=== PATIENT | male | born 1990 | race African-American/Black ===

== ENCOUNTER 2019-07-19 16:12 | Emergency (ER) | payer SELFPAY ==
[2019-07-19] MEDS ORDERED: NA CHLORIDE 0.9% 1,000 ML ONE ×2 (16:32→18:50)
[2019-07-19 16:51] LABS: Absolute Lymphocytes (CBC) 1.7 K/uL (0.7-4.9); Basophils % 0.3 % (0-1.3); Hematocrit 42.1 % (39.6-49.0); Lymphocytes % 16.2 % (15.3-44.8); MPV 9.2 fL (7.6-11.3); RBC Red Blood Cell Count 5.24 M/uL (4.33-5.43)
[2019-07-19 16:58] LABS: Protime INR 1.09
[2019-07-19 17:37] LABS: ALT/SGPT 46 U/L (12-78); AST/SGOT 59 U/L (15-37); Alkaline Phosphatase 76 U/L (45-117); BUN Blood Urea Nitrogen 16 mg/dL (7-18); Bicarbonate 28 mmol/L (21-32); Bilirubin Direct 0.2 mg/dL (0-0.2); Bilirubin Total 0.8 mg/dL (0.2-1.0); Glucose Level 81 mg/dL (74-106); Potassium 3.3 mmol/L (3.5-5.1); Protein, Total 8.3 g/dL (6.4-8.2); Sodium Level 140 mmol/L (136-145)
[2019-07-19] MEDS ORDERED: POTASSIUM 25 MEQ EFFERV TAB ONE (18:50)
[2019-07-19 19:15] VITALS: TEMP 99.1
[2019-07-19 19:17] VITALS: BP 113/73; O2SAT 98
[2019-07-19 20:23] LABS: Barbiturates NEGATIVE (NEGATIVE); Benzodiazepines NEGATIVE (NEGATIVE); Cocaine NEGATIVE (NEGATIVE); METHAMPHETAM NEGATIVE (NEGATIVE); Methadone NEGATIVE (NEGATIVE); Opiates NEGATIVE (NEGATIVE); Phencyclidine NEGATIVE (NEGATIVE); THC Cannibis POSITIVE (NEGATIVE)
[2019-07-19 21:56] LABS: Urine Blood NEGATIVE (NEG); Urine Glucose NEGATIVE (NEG); Urine Protein 1+ (NEG); Urine pH 5.5 (5.0-7.0)
--- NOTE | 2019-07-20 14:07 | EKG ---
Test Date: 2019-07-19 Test Time: 16:42:24 Postal Transportation Clerk: FLAVIA MEASUREMENT RESULTS: Intervals: Rate: 70 AK: 184 QRSD: 94 QT: 382 QTc: 412 Oneco: P: 31 AK: 184 QRS: 63 T: 44 INTERPRETIVE STATEMENTS: Sinus rhythm with premature atrial complexes Otherwise normal ECG No previous ECG available for comparison Electronically Signed On 07-20-19 14:06:14 CDT by Brown Fatima
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
== END 2019-07-19 19:02 | disposition home or self-care (01) ==
LOC: ER 16:12
DX: Z04.9 Encounter for examination and observation for unspecified reason (principal); F31.9 Bipolar disorder, unspecified
CPT/HCPCS: 36415; 80048; 80076; 80307; 80320; 80329; 81003; 85025; 85610; 85730; 93005; 96360; 99284; J7030

== ENCOUNTER 2019-11-04 11:43 | Emergency (ER) | payer SELFPAY ==
--- NOTE | 2019-11-04 12:37 | EDPHYS ---
Physician Documentation [facility] Name: Lianne David Age: 29 yrs Sex: Male : 1990 Arrival Date: 11/04/2019 Time: 11:51 Bed 8 Private MD: RAFFAELE Physician Fawad Shearer HPI: 11/03 11:55 This 29 yrs old Black Male presents to ER via Unassigned with complaints of Hand Injury.cp Historical: - Allergies: 11:58 No Known Allergies; tw2 - Home Meds: 11:58 None [Active]; tw2 - PMHx: 11:58 Bipolar disorder; tw2 - PSHx: 11:58 None; tw2 - Immunization history:: Adult Immunizations. - Social history:: Smoking status: . ROS: 12:00 MS/extremity: Positive for pain, tenderness, of the head of right middle metacarpal, cp Negative for deformity. 12:00 Constitutional: Negative for chills, fever. cp 12:00 Neck: Negative for pain with movement, pain at rest. 12:00 Back: Negative for pain at rest, pain with movement. 12:00 Skin: Negative for cellulitis, rash. 12:00 Neuro: Negative for headache, numbness, tingling. 12:00 All other systems are negative. Exam: 12:05 Constitutional: The patient appears in no acute distress, alert, awake, well developed, cp well nourished. 12:05 Musculoskeletal/extremity: Extremities: grossly normal except: noted in the head of cp right middle metacarpal: pain, tenderness, There is no evidence of deformity, decreased range of motion right middle metacarpal phalangeal joint, Perfusion: the extremity is normally perfused throughout, Sensation intact. Tendon exam: specific tendon testing normal through active and passive range of motion 12:05 Head/Face: Normocephalic, atraumatic. cp 12:05 Cardiovascular: Rate: normal. 12:05 Respiratory: the patient does not display signs of respiratory distress, Respirations: normal, no use of accessory muscles, labored breathing, is not present. Vital Signs: 11:52 BP 127 / 96; Pulse 60; Resp 16; Temp 97.8(TE); Pulse Ox 100% on R/A; Weight 65.77 kg tw2 (R); Height 5 ft. 8 in. (172.72 cm); Pain 8/10; 12:37 BP 138 / 88; Pulse 68; Resp 17; Pulse Ox 99% on R/A; tw2 11:52 Body Mass Index 22.05 (65.77 kg, 172.72 cm) tw2 MDM: 11:53 Patient medically screened. [facility] 12:33 Test interpretation: by ED physician or midlevel provider: xrays of right hand negative cp for fracture. 12:35 Data reviewed: vital signs, nurses notes, radiologic studies, plain films, and as a cp result, I will discharge patient. 12:35 Differential diagnosis: dislocation, closed fracture, contusion. Counseling: I had a cp detailed discussion with the patient and/or guardian regarding: the historical points, exam findings, and any diagnostic results supporting the discharge/admit diagnosis, radiology results, to return to the emergency department if symptoms worsen or persist or if there are any questions or concerns that arise at home. 11/03 11:52 Order name: XRAY Hand RIGHT 3 View: pain times 1 month cp Administered Medications: No medications were administered Disposition: 12:45 Chart complete. cp 11/04 11:12 Co-signature as Attending Physician, Fawad Shearer MD I agree with the assessment and [facility] plan of care. Disposition: 11/04/19 12:36 Discharged to Home. Impression: Pain in right hand. - Condition is Stable. - Discharge Instructions: Hand Pain. - Prescriptions for Ibuprofen 800 mg Oral Tablet - take 1 tablet by ORAL route every 8 hours As needed take with food; 30 tablet. - Medication Reconciliation Form, Thank You Letter, Antibiotic Education, Prescription Opioid Use form. - Follow up: Private Physician; When: 2 - 3 days; Reason: Worsening of condition. - Problem is new. - Symptoms are unchanged. Signatures: Dispatcher [employer] Fawad Fernando MD MD cha Page, Corey, PA PA cp Barber, Rebecca, RN RN Ping Martines RN RN tw2 Corrections: (The following items were deleted from the chart) 11/03 12:38 12:36 Splint - Finger ordered. cp cp 12:40 12:36 11/04/2019 12:36 Discharged to Home. Impression: Pain in right hand. Condition is rb1 Stable. Forms are Medication Reconciliation Form, Thank You Letter, Antibiotic Education, Prescription Opioid Use. Follow up: Private Physician; When: 2 - 3 days; Reason: Worsening of condition. Problem is new. Symptoms are unchanged. cp 11/04 06:38 06:36 MS/extremity: Positive for pain, tenderness, of the head of right middle cp metacarpal, Negative for deformity, cp
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
[2019-11-04 13:17] VITALS: TEMP 97.8
[2019-11-04 13:18] VITALS: BP 138/88; O2SAT 99
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
== END 2019-11-04 12:40 | disposition home or self-care (01) ==
LOC: ER 11:43
DX: M79.641 Pain in right hand (principal)
CPT/HCPCS: 99283

== ENCOUNTER 2022-07-02 13:00 | Emergency (ER) | payer SELFPAY ==
[2022-07-02] MEDS ORDERED: MIDAZOLAM HCL 2 MG/2 ML INJ ONE (13:10)
[2022-07-02 13:32] LABS: Absolute Lymphocytes (CBC) 2.1 K/uL (0.7-4.9); Hematocrit 43.6 % (39.6-49.0); Lymphocytes % 18.5 % (15.3-44.8); MCV 83.9 fL (80-100); MPV 8.4 fL (7.6-11.3)
[2022-07-02] MEDS ORDERED: NA CHLORIDE 0.9% 2,000 ML ONE (13:33)
[2022-07-02 13:37] LABS: Protime INR 0.99
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
[2022-07-02 13:54] LABS: ALT/SGPT 75 U/L (16-61); Albumin 3.9 g/dL (3.4-5.0); Alkaline Phosphatase 83 U/L (45-117); BUN Blood Urea Nitrogen 9 mg/dL (7-18); Bicarbonate 20 mEq/L (21-32); Bilirubin Direct 0.1 mg/dL (0-0.2); Bilirubin Indirect, Calculated 0.4 mg/dL (0.2-0.8); Bilirubin Total 0.5 mg/dL (0.2-1.0); Glomerular Filtration Rate 76 ml/min (=/>90); Glucose Level 95 mg/dL (74-106); Protein, Total 8.2 g/dL (6.4-8.2); Sodium Level 137 mEq/L (136-145)
[2022-07-02 13:55] LABS: AST/SGOT 74 U/L (15-37); Potassium 3.7 mEq/L (3.5-5.1)
--- NOTE | 2022-07-02 15:05 | EDPHYS ---
Physician Documentation [facility] Name: Kylah David Age: 31 yrs Sex: Male : 1990 Arrival Date: 07/02/2022 Time: 13:00 Bed 20 Private MD: ED Physician Gerber Lucia HPI: 07/02 13:15 This 31 yrs old Black Male presents to ER via EMS with complaints of Altered Mental cp Status, Drug Abuse. 13:15 The patient presents with confusion. Onset: The symptoms/episode began/occurred today. cp Possible causes: drug use. Current symptoms: In the emergency department the patient's symptoms are unchanged from the initial presentation, despite home interventions. 13:15 Patient is a 24-year-old male brought to the emergency department accompanied by law cp enforcement after reportedly being involved in a argument with another gentleman. Law enforcement arrived on the scene and observed that the patient was altered and so they were concerned that patient was on an of illegal substance. Patient is not cooperative and is combative during initial interview. 13:15 Unable to obtain HPI due to patient is being uncooperative. cp Historical: - PMHx: 13:47 Bipolar disorder; db - Immunization history:: unknown. - Social history:: Smoking status: unknown Patient uses alcohol, street drugs. ROS: 13:15 Constitutional: Negative for fever. cp 13:15 Neck: Negative for stiffness. cp 13:15 Cardiovascular: Negative for chest pain. 13:15 Abdomen/GI: Negative for abdominal pain. 13:15 Eyes: Negative for injury, pain, redness, and discharge. cp 13:15 ENT: Negative for drainage from ear(s), ear pain, sore throat, difficulty swallowing, cp difficulty handling secretions. 13:15 Respiratory: Negative for cough, shortness of breath, wheezing. 13:15 Neuro: Positive for altered mental status. 13:15 All other systems are negative. Exam: 13:22 Constitutional: The patient appears alert, awake, non-diaphoretic, non-toxic, well cp developed, well nourished. 13:22 Head/Face: Normocephalic, atraumatic. cp 13:22 Eyes: Periorbital structures: appear normal, Pupils: equal, round, and reactive to light and accomodation, Conjunctiva: normal, no exudate, no injection, Sclera: no appreciated abnormality, Lids and lashes: appear normal, bilaterally. 13:22 ENT: External ear(s): are unremarkable, Nose: is normal, Mouth: Lips: moist, Oral mucosa: pink and intact, moist, Posterior pharynx: is normal, airway is patent, no erythema, no exudate. 13:22 Neck: ROM/movement: is normal, is supple, without pain, no range of motions limitations. 13:22 Chest/axilla: Inspection: normal, Palpation: is normal, no crepitus, no tenderness. cp 13:22 Cardiovascular: Rate: tachycardic, Rhythm: regular. 13:22 Respiratory: the patient does not display signs of respiratory distress, Respirations: normal, no use of accessory muscles, no retractions, labored breathing, is not present, Breath sounds: are clear throughout, no decreased breath sounds, no stridor, no wheezing. 13:22 Abdomen/GI: Inspection: abdomen appears normal, Palpation: abdomen is soft and cp non-tender, in all quadrants. 13:22 Back: pain, is absent, ROM is normal. cp 13:22 Neuro: Orientation: unable to test, Mentation: confused, Motor: moves all fours, strength is normal. 13:22 Psych: Behavior/mood is uncooperative, Affect is animated, Patient has no thoughts/intents to harm self or others. Judgement / Insight is impaired. 13:27 ECG was reviewed by the Attending Physician. cp Vital Signs: 12:55 BP 144 / 123; Pulse 153; Resp 22; Pulse Ox 100% ; Weight 74.84 kg; db 13:12 BP 149 / 81; Pulse 100; Resp 18; Pulse Ox 96% on R/A; db 13:30 BP 125 / 77; Pulse 69; Resp 16; Pulse Ox 95% on R/A; db 14:00 BP 105 / 64; Pulse 81; Resp 16; Pulse Ox 96% on R/A; db 15:00 BP 107 / 64; Pulse 76; Resp 16; Pulse Ox 95% on R/A; db MDM: 13:15 Patient medically screened. cp 13:30 Differential Diagnosis: electrolyte abnormality, alcohol intoxication, hypoglycemia, cp intracranial bleed, meningitis, overdose, seizure, sepsis, volume depletion. 15:05 Data reviewed: vital signs, nurses notes, lab test result(s), EKG, radiologic studies. cp 15:05 Consideration of Admission/Observation Escalation of care including cp admission/observation considered. I considered the following discharge prescriptions or medication management in the emergency department Medications were administered in the Emergency Department. See MAR. Counseling: I had a detailed discussion with the patient and/or guardian regarding: the historical points, exam findings, and any diagnostic results supporting the discharge/admit diagnosis, lab results, radiology results, to return to the emergency department if symptoms worsen or persist or if there are any questions or concerns that arise at home. Response to treatment: the patient's symptoms have markedly improved after treatment, Patient alert times 3. Will discharge to home for continued monitoring. 07/02 13:11 Order name: Acetaminophen; Complete Time: 14:38 cp 07/02 13:11 Order name: Basic Metabolic Panel; Complete Time: 14:38 cp 07/02 13:11 Order name: CBC with Diff; Complete Time: 13:37 cp 07/02 13:37 Interpretation: Normal except: WBC 11.30; MCH 26.4; MCHC 31.4. cp 07/02 13:11 Order name: ETOH Level; Complete Time: 14:39 cp 07/02 13:11 Order name: Hepatic Function; Complete Time: 14:39 cp 07/02 14:39 Interpretation: Normal except: AST 74; ALT 75; GLOB 4.3; A/G 0.9. cp 07/02 13:11 Order name: PT-INR; Complete Time: 13:43 cp 07/02 13:11 Order name: Ptt, Activated; Complete Time: 13:43 cp 07/02 13:11 Order name: Salicylate; Complete Time: 14:39 cp 07/02 13:11 Order name: Urinalysis w/ reflexes cp 07/02 13:11 Order name: Urine Drug Screen cp 07/02 13:11 Order name: CT Head C Spine; Complete Time: 13:43 cp 07/02 13:43 Interpretation: Reviewed report. 07/02 13:11 Order name: EKG; Complete Time: 13:12 cp 07/02 13:11 Order name: EKG - Nurse/Tech; Complete Time: 13:19 cp 07/02 13:11 Order name: IV Saline Lock; Complete Time: 13:19 cp 07/02 13:11 Order name: Labs collected and sent; Complete Time: 13:19 cp EC: Rate is 92 beats/min. Rhythm is regular. ID interval is normal. QRS interval is cp prolonged at 102 msec. QT interval is normal. T waves are Inverted in lead aVR. Interpreted by me. Reviewed by me. Administered Medications: : Drug: Midazolam IM 4 mg {Note: split dose. 2mg right deltoid, 2mg left deltoid.} Route: kc6 IM; Site: right deltoid; 15:22 Follow up: Response: No adverse reaction db 13:44 Drug: NS 0.9% IV 1000 ml Route: IV; Rate: 1 bolus; Site: right forearm; kc6 15:22 Follow up: Response: No adverse reaction; IV Status: Completed infusion; IV Intake: db 1000ml 13:44 Drug: NS 0.9% IV 1000 ml Route: IV; Rate: 1 bolus; Site: right forearm; kc6 15:22 Follow up: Response: No adverse reaction; IV Status: Completed infusion; IV Intake: db 1000ml Disposition Summary: 07/02/22 15:05 Discharge Ordered Location: Home cp Problem: new cp Symptoms: have improved cp Condition: Stable cp Diagnosis - Other psychoactive substance abuse with intoxication, unspecified cp Followup: cp - With: Private Physician - When: 1 - 2 days - Reason: Recheck today's complaints Discharge Instructions: - Discharge Summary Sheet cp - Substance Use Disorder cp Forms: - Medication Reconciliation Form cp - Thank You Letter cp - Antibiotic Education cp - Prescription Opioid Use cp Signatures: Dispatcher [employer] EDMS Fawad Peña PA PA cp Kriss Arguello RN RN kc6 Velvet Haji RN RN db Corrections: (The following items were deleted from the chart) 07/03 15:04 07/02 13:15 All other systems are negative, cp cp
--- NOTE | 2022-07-02 15:05 | ER ---
Nurse's Notes [facility] Name: Kylah David Age: 31 yrs Sex: Male : 1990 Arrival Date: 07/02/2022 Time: 13:00 Bed 20 Private MD: Diagnosis: Other psychoactive substance abuse with intoxication, unspecified Presentation: 07/02 12:55 Chief complaint: EMS states: Patient brought in [place] [facility] and [place] [employer]. patient db found on the side of the road. Confrontational altered. unknown ingestion. patient throwing himself around the bed confused and altered not talking. EMS unable to obtain vital signs. Pt took some pills, drank wine and beer. Coronavirus screen: unknown. Ebola Screen: Unable to complete the Ebola screening because: The patient is disoriented. Initial Sepsis Screen: Does the patient meet any 2 criteria? No. Patient's initial sepsis screen is negative. Does the patient have a suspected source of infection? No. Patient's initial sepsis screen is negative. Risk Assessment: Do you want to hurt yourself or someone else? Unable to obtain. Onset of symptoms was July 02, 2022. 12:55 Method Of Arrival: Law Enforcement: [place] [employer] db 12:55 Method Of Arrival: EMS: [facility] db 12:55 Acuity: MARIBEL 2 db 15:17 Risk Assessment: Do you want to hurt yourself or someone else? Patient reports no db desire to harm self or others. Triage Assessment: 13:00 General: Appears distressed, uncomfortable, Behavior is agitated, anxious, db uncooperative. 13:00 Neuro: Oriented to none. db 15:17 Pain: Denies pain. db Historical: - PMHx: 13:47 Bipolar disorder; db - Immunization history:: unknown. - Social history:: Smoking status: unknown Patient uses alcohol, street drugs. Screenin:05 [facility] ED Fall Risk Assessment (Adult) History of falling in the last 3 months, kc6 including since admission No falls in past 3 months (0 pts) Confusion or Disorientation Yes (5 pts) Intoxicated or Sedated Yes (3 pts) Impaired Gait No (0 pts) Mobility Assist Device Used No (0 pt) Altered Elimination No (0 pt) Score/Fall Risk Level 3 or more points = High Risk Oriented to surroundings, Maintained a safe environment, Educated pt \T\ family on fall prevention, incl call for assistance when getting out of bed, Assessed \T\ reinforced patient's understanding of fall precautions, Hourly rounding (assess needs \T\ fall precautionary measures) done. Abuse screen: Denies threats or abuse. Denies injuries from another. Nutritional screening: No deficits noted. Tuberculosis screening: No symptoms or risk factors identified. Assessment: 13:21 Reassessment: split dose of Versed given. 2mg right deltoid and 2mg left thigh. db 13:24 Reassessment: to CT with nurse and monitor. db 13:30 Reassessment: patient initially restrained by PD and then restrained upon arrival. db Restraints removed after versed administration. patient no longer fighting. Answered questions. States took Percocet. Pain: Denies pain. Neuro: Level of Consciousness is confused. 13:45 Reassessment: attempted to obtain urine via straight cath. patient woke up and said no. db Immediately stopped. provider notified. patient non combative and went back to sleep. 15:20 Reassessment: Patient appears in no apparent distress at this time. Patient and/or db family updated on plan of care and expected duration. Pain level reassessed. Patient is alert, oriented x 3, equal unlabored respirations, skin warm/dry/pink. Vital Signs: 12:55 BP 144 / 123; Pulse 153; Resp 22; Pulse Ox 100% ; Weight 74.84 kg; db 13:12 BP 149 / 81; Pulse 100; Resp 18; Pulse Ox 96% on R/A; db 13:30 BP 125 / 77; Pulse 69; Resp 16; Pulse Ox 95% on R/A; db 14:00 BP 105 / 64; Pulse 81; Resp 16; Pulse Ox 96% on R/A; db 15:00 BP 107 / 64; Pulse 76; Resp 16; Pulse Ox 95% on R/A; db ED Course: 13:01 Patient arrived in ED. eb 13:09 Fawad Peña PA is PHCP. cp 13:09 Gerber Lucia MD is Attending Physician. cp 13:10 Inserted saline lock: 20 gauge in right forearm, using aseptic technique. ,using kc6 aseptic technique. placed by Carmelina Luevano RN Blood collected. 13:10 Patient has correct armband on for positive identification. Bed in low position. Call kc6 light in reach. Side rails up X2. Security at bedside. Seizure precautions initiated. 13:10 Client placed on continuous cardiac and pulse oximetry monitoring. NIBP monitoring db applied. Warm blanket given. 13:10 Arm band placed on Patient placed in an exam room. db 13:20 Velvet Haji, RN is Primary Nurse. db 13:35 CT Head C Spine In Process Unspecified. EDMS 13:47 Triage completed. db 15:21 No provider procedures requiring assistance completed. IV discontinued, intact, db bleeding controlled, No redness/swelling at site. Administered Medications: 13:13 Drug: Midazolam IM 4 mg {Note: split dose. 2mg right deltoid, 2mg left deltoid.} Route: kc6 IM; Site: right deltoid; 15:22 Follow up: Response: No adverse reaction db 13:44 Drug: NS 0.9% IV 1000 ml Route: IV; Rate: 1 bolus; Site: right forearm; kc6 15:22 Follow up: Response: No adverse reaction; IV Status: Completed infusion; IV Intake: db 1000ml 13:44 Drug: NS 0.9% IV 1000 ml Route: IV; Rate: 1 bolus; Site: right forearm; kc6 15:22 Follow up: Response: No adverse reaction; IV Status: Completed infusion; IV Intake: db 1000ml Medication: 15:21 VIS not applicable for this client. db Intake: 15:22 IV: 1000ml; Total: 1000ml. db 15:22 IV: 1000ml; Total: 2000ml. db Outcome: 15:05 Discharge ordered by . marily 15:21 Discharged to home ambulatory. db 15:21 Condition: stable 15:21 Discharge instructions given to patient, Instructed on discharge instructions, follow up and referral plans. 15:23 Patient left the ED. db Signatures: Dispatcher [employer] EDMS Fawad Peña PA PA cp Botello, Elizabeth eb Campbell, Kaitlyn, RN RN kc6 Velvet Haji, RN RN db Corrections: (The following items were deleted from the chart) 13:32 13:13 Midazolam IM 4 mg IM in right deltoid kc6 kc6 15:20 15:17 General: Appears in no apparent distress. comfortable, Behavior is calm, db cooperative, db
[2022-07-02 15:34] VITALS: BP 107/64; O2SAT 95
[2022-07-02 15:41] LABS: Barbiturates NEGATIVE (NEGATIVE); Benzodiazepines POSITIVE (NEGATIVE); Cocaine NEGATIVE (NEGATIVE); METHAMPHETAM NEGATIVE (NEGATIVE); Methadone NEGATIVE (NEGATIVE); Opiates NEGATIVE (NEGATIVE); Phencyclidine NEGATIVE (NEGATIVE); Specific Gravity 1.026 (1.005-1.030); THC Cannibis POSITIVE (NEGATIVE); Urine Bacteria <20 /HPF (<20); Urine Bilirubin NEGATIVE (Negative); Urine Blood Negative (Negative); Urine Clarity Clear (Clear); Urine Color Yellow (Yellow); Urine Glucose NEGATIVE (Negative); Urine Mucus 1+ /HPF (None Seen); Urine Protein TRACE (Negative); Urine RBC <5 /HPF (None Seen); Urine Urobilinogen 1+ (Normal)
--- NOTE | 2022-07-03 11:44 | EKG ---
Test Date: 2022-07-02 Test Time: 13:22:02 Fur Weigher: SUSY MEASUREMENT RESULTS: Intervals: Rate: 93 NC: 186 QRSD: 102 QT: 360 QTc: 447 [place]: P: 75 NC: 186 QRS: 89 T: 65 INTERPRETIVE STATEMENTS: Normal sinus rhythm Normal ECG Compared to ECG 07/02/2022 13:21:28 No significant changes Electronically Signed On 07-03-22 11:41:37 CDT by Brown Fatima
--- NOTE | 2022-07-03 11:44 | EKG ---
Test Date: 2022-07-02 Test Time: 13:21:28 Human Resources Leader: SUSY MEASUREMENT RESULTS: Intervals: Rate: 92 IN: 186 QRSD: 102 QT: 366 QTc: 452 [place]: P: 76 IN: 186 QRS: 90 T: 65 INTERPRETIVE STATEMENTS: Normal sinus rhythm Normal ECG Compared to ECG 07/19/2019 16:42:24 Atrial premature complex(es) no longer present Electronically Signed On 07-03-22 11:41:38 CDT by Brown Fatima
== END 2022-07-02 15:23 | disposition home or self-care (01) ==
LOC: ER 13:00
DX: F19.129 Other psychoactive substance abuse with intoxication, unspecified (principal)
CPT/HCPCS: 36415; 70450; 72125; 80048; 80076; 80307; 81001; 85025; 85610; 85730; 93005; 96360; 96361; 96372; 99285; G0480; J2250; J7030

== ENCOUNTER 2022-09-05 00:39 | Emergency (ER) | payer SELFPAY ==
[2022-09-05 01:16] LABS: Protime INR 1.13
[2022-09-05 01:18] LABS: Absolute Lymphocytes (CBC) 2.3 K/uL (0.7-4.9); Hematocrit 39.5 % (39.6-49.0); Lymphocytes % 26.1 % (15.3-44.8); MPV 8.3 fL (7.6-11.3); RBC Red Blood Cell Count 4.82 M/uL (4.33-5.43)
[2022-09-05 01:35] LABS: ALT/SGPT 36 U/L (16-61); AST/SGOT 22 U/L (15-37); Albumin 3.4 g/dL (3.4-5.0); Alkaline Phosphatase 77 U/L (45-117); BUN Blood Urea Nitrogen 9 mg/dL (7-18); Bicarbonate 30 mEq/L (21-32); Bilirubin Direct < 0.1 mg/dL (0-0.2); Bilirubin Indirect, Calculated ND mg/dL (0.2-0.8); Bilirubin Total 0.2 mg/dL (0.2-1.0); Glomerular Filtration Rate 101 ml/min (=/>90); Glucose Level 124 mg/dL (74-106); Potassium 3.7 mEq/L (3.5-5.1); Protein, Total 7.3 g/dL (6.4-8.2); Sodium Level 137 mEq/L (136-145)
[2022-09-05 05:03] LABS: Barbiturates NEGATIVE (NEGATIVE); Benzodiazepines NEGATIVE (NEGATIVE); Cocaine POSITIVE (NEGATIVE); METHAMPHETAM NEGATIVE (NEGATIVE); Methadone NEGATIVE (NEGATIVE); Opiates NEGATIVE (NEGATIVE); Phencyclidine NEGATIVE (NEGATIVE); THC Cannibis POSITIVE (NEGATIVE)
--- NOTE | 2022-09-05 05:04 | EDPHYS ---
Physician Documentation [facility] Name: Kylah David Age: 32 yrs Sex: Male : 1990 Arrival Date: 09/05/2022 Time: 00:39 Bed 18 Private MD: ED Physician Brissa Tolliver HPI: 09/05 00:53 This 32 yrs old Black Male presents to ER via EMS with complaints of Overdose. sp3 00:56 This 32 yrs old Black Male presents to ER via EMS with complaints of overdose. sp3 00:58 32-year-old male with history of bipolar disease presents to the ED by EMS for being sp3 found on the side of the road by police and being given Narcan after which she became awake and oriented. EMS arrived to find alert and oriented patient. EMS reports pinpoint pupils prior to Narcan administration were also given to us. Patient denies any drug usage except "marijuana". Apparently this was from a new source for him and he had not used this type of marijuana before. Patient's birthday was yesterday and he states that he only had alcohol. Review of systems is negative for headache, neck pain, facial pain, fever, URI symptoms, chest pain, shortness of breath, back pain, nausea, vomiting, diarrhea, sore muscles, rash, known sick contacts, travel history, or any other signs or symptoms on ROS at this time.. Historical: - PMHx: 00:43 Bipolar disorder; rv - Immunization history:: Adult Immunizations unknown. - Social history:: Smoking status: Patient reports the use of cigarette tobacco products, smokes one pack cigarettes per day. Patient uses street drugs, marijuana. ROS: 01:00 Constitutional: Negative for fever, chills, and weight loss, Eyes: Negative for injury, sp3 pain, redness, and discharge, ENT: Negative for injury, pain, and discharge, Neck: Negative for injury, pain, and swelling, Cardiovascular: Negative for chest pain, palpitations, and edema, Respiratory: Negative for shortness of breath, cough, wheezing, and pleuritic chest pain, Abdomen/GI: Negative for abdominal pain, nausea, vomiting, diarrhea, and constipation, Back: Negative for injury and pain, MS/Extremity: Negative for injury and deformity, Skin: Negative for injury, rash, and discoloration, Allergy/Immunology: Negative for hives, rash, and allergies, Endocrine: Negative for neck swelling, polydipsia, polyuria, polyphagia, and marked weight changes, Hematologic/Lymphatic: Negative for swollen nodes, abnormal bleeding, and unusual bruising. 01:00 All other systems are negative. Exam: 01:00 Constitutional: This is a well developed, well nourished patient who is awake, alert, sp3 and in no acute distress. Head/Face: Normocephalic, atraumatic. Eyes: Pupils equal round and reactive to light, extra-ocular motions intact. Lids and lashes normal. Conjunctiva and sclera are non-icteric and not injected. Cornea within normal limits. Periorbital areas with no swelling, redness, or edema. ENT: Nares patent. No nasal discharge, no septal abnormalities noted. External auditory canals are clear. Oropharynx with no redness, swelling, or masses, exudates, or evidence of obstruction, uvula midline. Mucous membranes moist. Neck: Trachea midline, no thyromegaly or masses palpated, and no cervical lymphadenopathy. Supple, full range of motion without nuchal rigidity, or vertebral point tenderness. No Meningismus. Chest/axilla: Normal chest wall appearance and motion. Nontender with no deformity. No lesions are appreciated. Cardiovascular: Regular rate and rhythm with a normal S1 and S2. No gallops, murmurs, or rubs. Normal PMI, no JVD. No pulse deficits. Respiratory: Lungs have equal breath sounds bilaterally, clear to auscultation and percussion. No rales, rhonchi or wheezes noted. No increased work of breathing, no retractions or nasal flaring. Abdomen/GI: Soft, non-tender, with normal bowel sounds. No distension or tympany. No guarding or rebound. No evidence of tenderness throughout. Back: No spinal tenderness. No costovertebral tenderness. Full range of motion. Skin: Warm, dry with normal turgor. Normal color with no rashes, no lesions, and no evidence of cellulitis. MS/ Extremity: Pulses equal, no cyanosis. Neurovascular intact. Full, normal range of motion. Neuro: Awake and alert, GCS 15, oriented to person, place, time, and situation. Cranial nerves II-XII grossly intact. Motor strength 5/5 in all extremities. Sensory grossly intact. Cerebellar exam normal. Normal gait. Psych: Awake, alert, with orientation to person, place and time. Behavior, mood, and affect are within normal limits. 01:33 ECG was reviewed by the Attending Physician. EKG demonstrates normal sinus rhythm at 62 sp3 bpm with a first-degree AV block with a WV interval of 236, normal axis, normal QRS, normal axis ST segments without evidence of acute ischemia. Vital Signs: 00:41 BP 119 / 68; Pulse 80; Resp 19; Temp 98.4; Pulse Ox 99% ; Weight 67.59 kg; Height 5 ft. rv 7 in. ; 02:02 Pulse 63; Resp 16; Pulse Ox 97% on R/A; rv 02:05 BP 112 / 80; rv 03:21 BP 111 / 70; Pulse 61; Resp 16; Pulse Ox 97% on R/A; rv 05:00 BP 110 / 75; Pulse 62; Resp 18 S; Pulse Ox 98% on R/A; ha1 00:41 Body Mass Index 23.34 (67.59 kg, 170.18 cm) rv Brandt Coma Score: 02:02 Eye Response: spontaneous(4). Motor Response: obeys commands(6). Verbal Response: rv oriented(5). Total: 15. 03:21 Eye Response: spontaneous(4). Motor Response: obeys commands(6). Verbal Response: rv oriented(5). Total: 15. MDM: 00:45 Patient medically screened. sp3 01:01 Data reviewed: vital signs, nurses notes, EMS record, lab test result(s), EKG. ED sp3 course: 32-year-old male with unknown ingestion now status post Narcan and fully awake. Patient is amenable to giving blood and urine to determine any medical emergency as well as being observed. Will observe patient for the next 6 hours to ensure no long-term narcotics on board as well as monitor for further potential Narcan administration. Patient is not suicidal, homicidal or psychotic. If work-up is negative and patient no longer has any further symptoms, we will safely discharge him home with PCP follow-up.. 04:27 ED course: Patient has had no further episodes of decreased consciousness and oxygen sp3 saturations were normal. I do not believe patient has a long-acting opioid on board at this point. UDS is pending and we will follow-up with this and and safely discharge patient home.. 05:03 ED course: UDS is positive for cocaine and marijuana only. Unknown if patient had sp3 possible synthetic agent as well. Given the fact that he has normal mental status and no neurological symptoms, we will safely discharge him home at this time.. 09/05 00:46 Order name: Acetaminophen; Complete Time: 02:25 sp3 09/05 00:46 Order name: Basic Metabolic Panel; Complete Time: 02: sp3 09/05 00:46 Order name: CBC with Diff; Complete Time: 02: sp3 09/05 00:46 Order name: ETOH Level; Complete Time: 02: sp3 09/05 00:46 Order name: Hepatic Function; Complete Time: sp3 09/05 00:46 Order name: PT-INR; Complete Time: : sp3 09/05 00:46 Order name: Salicylate; Complete Time: 02: sp3 09/05 00:46 Order name: Urine Drug Screen sp3 09/05 00:46 Order name: EKG; Complete Time: 00:47 sp3 09/05 00:46 Order name: EKG - Nurse/Tech; Complete Time: 01:19 sp3 09/05 00:46 Order name: IV Saline Lock; Complete Time: 01: sp3 09/05 00:46 Order name: Labs collected and sent; Complete Time: 01:00 sp3 09/05 00:46 Order name: Suicide Screening ([place]); Complete Time: 01:00 sp3 09/05 00:47 Order name: Monitor; Complete Time: 01:00 sp3 09/05 00:47 Order name: Pulse Ox Monitoring; Complete Time: 01:00 sp3 Administered Medications: No medications were administered Disposition Summary: 09/05/22 05:04 Discharge Ordered Location: Home sp3 Condition: Stable sp3 Diagnosis - Cocaine use, marijuana use, substance abuse, altered mental status now resolved sp3 Followup: sp3 - With: Private Physician - When: Upon discharge from the Emergency Department - Reason: Continuance of care Discharge Instructions: - Discharge Summary Sheet sp3 - Substance Use Disorder and Mental Illness sp3 Forms: - Medication Reconciliation Form sp3 - Thank You Letter sp3 - Antibiotic Education sp3 - Prescription Opioid Use sp3 - Patient Portal Instructions sp3 Signatures: Dispatcher [employer] EDMS Garth, Quique, RN RN rv Brissa Tolliver, MD LANE sp3
--- NOTE | 2022-09-05 05:04 | ER ---
Nurse's Notes [facility] Name: Kylah David Age: 32 yrs Sex: Male : 1990 Arrival Date: 09/05/2022 Time: 00:39 Bed 18 Private MD: Diagnosis: Cocaine use, marijuana use, substance abuse, altered mental status now resolved Presentation: 09/05 00:41 Chief complaint: EMS states: FOUND PT ON THE SIDE OF THE ROAD UNRESPONSIVE. PD rv ADMINISTERED NARCAN 4MG INTRANASAL. PT IS A0X4, DIAPHORETIC BY THE TIME EMS ARRIVED. DENIES PAIN AT THIS TIME. Coronavirus screen: Vaccine status:. Ebola Screen: Patient negative for fever greater than or equal to 101.5 degrees Fahrenheit, and additional compatible Ebola Virus Disease symptoms Patient denies exposure to infectious person. Patient denies travel to an Ebola-affected area in the 21 days before illness onset. Initial Sepsis Screen: Does the patient meet any 2 criteria? No. Patient's initial sepsis screen is negative. Does the patient have a suspected source of infection? No. Patient's initial sepsis screen is negative. Risk Assessment: Do you want to hurt yourself or someone else? Patient reports no desire to harm self or others. Onset of symptoms was September 05, 2022. 00:41 Method Of Arrival: EMS: [facility] rv 00:41 Acuity: MARIBEL 2 rv Triage Assessment: 00:44 General: Appears comfortable, Behavior is calm, cooperative. Pain: Denies pain. Neuro: rv Level of Consciousness is awake, alert, Oriented to person, place, time, situation, Pupils are constricted. Cardiovascular: Capillary refill < 3 seconds. Respiratory: Airway is patent Respiratory effort is even, unlabored. Derm: Skin is healthy with good turgor. Historical: - PMHx: 00:43 Bipolar disorder; rv - Immunization history:: Adult Immunizations unknown. - Social history:: Smoking status: Patient reports the use of cigarette tobacco products, smokes one pack cigarettes per day. Patient uses street drugs, marijuana. Screenin:44 [facility] ED Fall Risk Assessment (Adult) History of falling in the last 3 months, rv including since admission No falls in past 3 months (0 pts) Confusion or Disorientation No (0 pts) Intoxicated or Sedated No (0 pts) Impaired Gait No (0 pts) Mobility Assist Device Used No (0 pt) Altered Elimination No (0 pt) Score/Fall Risk Level 0 - 2 = Low Risk Oriented to surroundings, Maintained a safe environment, Educated pt \T\ family on fall prevention, incl call for assistance when getting out of bed, Assessed \T\ reinforced patient's understanding of fall precautions, Provided non-skid footwear, Hourly rounding (assess needs \T\ fall precautionary measures) done, Used ambulatory aids as needed (educated on \T\ assisted with), Used gait belt as appropriate. Abuse screen: Denies threats or abuse. Denies injuries from another. Nutritional screening: No deficits noted. Tuberculosis screening: No symptoms or risk factors identified. Assessment: 02:02 Reassessment: No changes from previously documented assessment. Patient is alert, rv oriented x 3, equal unlabored respirations, skin warm/dry/pink. 04:00 Reassessment: Patient and/or family updated on plan of care and expected duration. Pain ha1 level reassessed. Patient is alert, oriented x 3, equal unlabored respirations, skin warm/dry/pink. Patient denies pain at this time. 05:00 Reassessment: Patient and/or family updated on plan of care and expected duration. Pain ha1 level reassessed. Patient is alert, oriented x 3, equal unlabored respirations, skin warm/dry/pink. Vital Signs: 00:41 BP 119 / 68; Pulse 80; Resp 19; Temp 98.4; Pulse Ox 99% ; Weight 67.59 kg; Height 5 ft. rv 7 in. ; 02:02 Pulse 63; Resp 16; Pulse Ox 97% on R/A; rv 02:05 BP 112 / 80; rv 03:21 BP 111 / 70; Pulse 61; Resp 16; Pulse Ox 97% on R/A; rv 05:00 BP 110 / 75; Pulse 62; Resp 18 S; Pulse Ox 98% on R/A; ha1 00:41 Body Mass Index 23.34 (67.59 kg, 170.18 cm) rv Gaines Coma Score: 02:02 Eye Response: spontaneous(4). Motor Response: obeys commands(6). Verbal Response: rv oriented(5). Total: 15. 03:21 Eye Response: spontaneous(4). Motor Response: obeys commands(6). Verbal Response: rv oriented(5). Total: 15. ED Course: 00:41 Patient arrived in ED. rv 00:42 Fawad Peña PA is PHCP. cp 00:42 Brissa Tolliver MD is Attending Physician. cp 00:43 Triage completed. rv 00:44 Arm band placed on right wrist. rv 00:45 Patient has correct armband on for positive identification. Provided Education on: DRUG rv ABUSE. 00:45 No provider procedures requiring assistance completed. rv 00:59 Quique Liang RN is Primary Nurse. rv 01:00 Inserted saline lock: 20 gauge in right forearm, using aseptic technique. Blood rv collected. 05:16 IV discontinued, intact, bleeding controlled, No redness/swelling at site. Pressure ha1 dressing applied. Administered Medications: No medications were administered Medication: 00:45 VIS not applicable for this client. rv Outcome: 05:04 Discharge ordered by . sp3 05:16 Discharged to home ambulatory. ha1 05:16 Condition: stable 05:16 Discharge instructions given to patient, Instructed on discharge instructions, follow up and referral plans. Demonstrated understanding of instructions, follow-up care. 05:17 Patient left the ED. ha1 Signatures: Fawad Peña PA PA cp Quique Liang, RN RN rv Brissa Tolliver MD MD sp3 Marti Watson RN RN ha1
[2022-09-05 05:53] VITALS: TEMP 98.4
[2022-09-05 05:59] VITALS: BP 110/75; O2SAT 98
--- NOTE | 2022-09-05 20:38 | EKG ---
Test Date: 2022-09-05 Test Time: 01:09:23 Audiovisual Production Specialist: GRIFFIN MEASUREMENT RESULTS: Intervals: Rate: 62 SD: 236 QRSD: 98 QT: 384 QTc: 389 [place]: P: 43 SD: 236 QRS: 84 T: 55 INTERPRETIVE STATEMENTS: Sinus rhythm with sinus arrhythmia with 1st degree AV block Otherwise normal ECG Compared to ECG 07/02/2022 13:22:02 First degree AV block now present Electronically Signed On 09-05-22 20:37:19 CDT by Brown Fatima
== END 2022-09-05 05:17 | disposition home or self-care (01) ==
LOC: ER 00:39
DX: F14.90 Cocaine use, unspecified, uncomplicated (principal); F12.90 Cannabis use, unspecified, uncomplicated
CPT/HCPCS: 36415; 80048; 80076; 80143; 80179; 80307; 82077; 85025; 85610; 93005